=== PATIENT | female | born 1995 | race Caucasian/White ===

== ENCOUNTER 2018-12-22 10:41 | Observation (INO) | payer OTHER ==
[2018-12-22 11:20] VITALS: BP 117/77; PULSE 84
[2018-12-22 11:35] LABS: Appearance CLEAR (CLEAR); Bacteria FEW /HPF (NEGATIVE); Bilirubin NEGATIVE (NEGATIVE); Blood NEGATIVE Ery/ul (0-5); Epithelial Cells RARE /HPF (FEW); Glucose NEGATIVE (NEGATIVE); Ketones NEGATIVE (NEGATIVE); Leukocyte Esterase SMALL (NEGATIVE); Mucus SLIGHT /HPF (NEGATIVE); Nitrite NEGATIVE (NEGATIVE); Protein,Urine Dip NEGATIVE (Negative); Specific Gravity 1.005 (1.005-1.025); Urobilinogen NEGATIVE mg/dL (0-1)
--- NOTE | 2018-12-22 12:15 | XRAY ---
Indication: Cervical length. Two-dimensional transvaginal limited OB ultrasound performed to evaluate cervical length. Cervix is closed measuring 4 cm in length.
== END 2018-12-22 12:35 | disposition home or self-care (01) ==
LOC: OB 10:41
PROVIDERS: ADMIT Family Medicine; ATTEND Family Medicine
DX: Z34.82 Encounter for supervision of other normal pregnancy, second trimester (principal)
CPT/HCPCS: 76817; 81001; 87086; G0378

== ENCOUNTER 2019-03-06 12:35 | Observation (INO) | payer OTHER ==
[2019-03-06 13:00] VITALS: BP 113/72; PULSE 100
[2019-03-06 13:17] LABS: Appearance CLEAR (CLEAR); Bacteria RARE /HPF (NEGATIVE); Bilirubin NEGATIVE (NEGATIVE); Blood NEGATIVE Ery/ul (0-5); Epithelial Cells RARE /HPF (FEW); Glucose NEGATIVE (NEGATIVE); Ketones NEGATIVE (NEGATIVE); Leukocyte Esterase SMALL (NEGATIVE); Nitrite NEGATIVE (NEGATIVE); Protein,Urine Dip NEGATIVE (Negative); RBC 0-2 /HPF (0-2); Specific Gravity 1.004 (1.005-1.025); Urobilinogen NEGATIVE mg/dL (0-1); WBC 0-2 /HPF (0-5)
[2019-03-06 13:48] LABS: Amphetamine,Urine NEGATIVE (NEGATIVE); Barbiturate,Urine NEGATIVE (NEGATIVE); Benzodiazepine,Urine NEGATIVE (NEGATIVE); Cocaine,Urine NEGATIVE (NEGATIVE); Methadone,Urine NEGATIVE (NEGATIVE); Opiate,Urine NEGATIVE (NEGATIVE); PCP,Urine NEGATIVE (NEGATIVE); THC,Urine NEGATIVE (NEGATIVE)
== END 2019-03-06 14:50 | disposition home or self-care (01) ==
LOC: OB 12:35
PROVIDERS: ADMIT Family Medicine; ATTEND Family Medicine
DX: Z34.83 Encounter for supervision of other normal pregnancy, third trimester (principal)
CPT/HCPCS: 80307; 81001; 87086; G0378

== ENCOUNTER 2019-03-08 07:03 | Observation (INO) | payer OTHER ==
[2019-03-08 07:44] VITALS: BP 121/72; PULSE 90
== END 2019-03-08 10:00 | disposition home or self-care (01) ==
LOC: OB 07:03
PROVIDERS: ADMIT Family Medicine; ATTEND Family Medicine
DX: Z34.83 Encounter for supervision of other normal pregnancy, third trimester (principal)
CPT/HCPCS: G0378 ×2

== ENCOUNTER 2019-03-12 11:57 | Inpatient (IN) | payer OTHER ==
[2019-03-12] MEDS ORDERED: Lactated Ringers 1,000 ML IV ONE (14:09)
[2019-03-12] MEDS ORDERED: OB EPIDURAL NAROPIN/SUFENTANIL IN NACL EPIDURAL PRN (14:09)
[2019-03-12] MEDS ORDERED: Ephedrine Sulfate 50 MG/ML IV PRN (14:09)
[2019-03-12] MEDS ORDERED: XYLOCAINE 1% HCL 20 ML MDV IJ PRN (14:09)
[2019-03-12] MEDS ORDERED: PITOCIN 30 UNITS/ LR 500 ML 500 ML IV SCH (14:30)
[2019-03-12] MEDS ORDERED: STADOL 2 MG IV ONE (14:38)
[2019-03-12 14:40] LABS: BASOPHIL % 0.1 % (0.0-0.4); Basophil (Absolute #) 0.01 (0-0.4); Eosinophil % 1.5 % (0.00-5.0); Eosinophil (Absolute #) 0.22 (0-0.5); Granulocyte Absolute (ANC) 10.29 (1.4-6.9); Granulocytes % 72.2 % (36.0-66.0); Hematocrit 37.3 % (35-47); Hemoglobin 12.3 gm/dl (12.0-16.0); Lymphocyte (Absolute #) 2.53 (1.0-4.6); Lymphocytes % 17.8 % (24.0-44.0); Mean Cell Volume 86.7 fl (78-100); Mean Corpuscular Hemoglobin 28.6 pg (26-32); Mean Platelet Volume 10.1 fl (6-9.5); Monocytes % 8.4 % (0.0-12.0); Platelet Count 236 K/mm3 (150-450); White Blood Count 14.3 K/mm3 (4.0-10.5)
[2019-03-12] MEDS ORDERED: XYLOCAINE 2%/Epi 1:200000 20ML VIAL MPF ONE (14:57)
[2019-03-12 15:06] LABS: Amphetamine,Urine NEGATIVE (NEGATIVE); Barbiturate,Urine NEGATIVE (NEGATIVE); Benzodiazepine,Urine NEGATIVE (NEGATIVE); Cocaine,Urine NEGATIVE (NEGATIVE); Methadone,Urine NEGATIVE (NEGATIVE); Opiate,Urine NEGATIVE (NEGATIVE); PCP,Urine NEGATIVE (NEGATIVE); THC,Urine NEGATIVE (NEGATIVE)
[2019-03-12] MEDS: Lactated Ringers 1,000 ML IV SCH ×2 (15:22→20:39)
[2019-03-12] MEDS ORDERED: XYLOCAINE 2%/Epi 1:200000 20ML VIAL MPF IJ PRN (15:23)
[2019-03-12 16:16] LABS: ABO TYPING A; Antibody Screen NEGATIVE (NEGATIVE); RH TYPING POSITIVE
[2019-03-12] MEDS ORDERED: Mylicon 80MG PO PRN (21:24)
[2019-03-12] MEDS ORDERED: CORTISONE 1% CREAM TP PRN (21:24)
[2019-03-12] MEDS ORDERED: MOTRIN 400 MG PO PRN (21:24)
[2019-03-12] MEDS ORDERED: LANSINOH 40 GM TOP PRN (21:24)
[2019-03-12] MEDS ORDERED: Dermoplast Spray TP PRN (21:24)
[2019-03-12] MEDS ORDERED: TYLENOL EXTRA STRENGTH 500 MG PO PRN (21:24)
[2019-03-12] MEDS ORDERED: NORCO 5/325 MG PO PRN (21:24)
[2019-03-12] MEDS ORDERED: Anucort-HC SUPPOSITORY PR PRN (21:24)
[2019-03-12] MEDS ORDERED: Dulcolax 10 MG SUPP PR PRN (21:24)
[2019-03-12] MEDS ORDERED: CLARITIN 10 MG PO PRN (21:39)
[2019-03-13] MEDS: Colace 100 MG PO SCH ×4 (00:50→21:11)
[2019-03-13 06:10] LABS: BASOPHIL % 0.1 % (0.0-0.4); Basophil (Absolute #) 0.01 (0-0.4); Eosinophil % 0.4 % (0.00-5.0); Eosinophil (Absolute #) 0.08 (0-0.5); Granulocyte Absolute (ANC) 15.81 (1.4-6.9); Hematocrit 33.2 % (35-47); Hemoglobin 10.8 gm/dl (12.0-16.0); Lymphocyte (Absolute #) 1.92 (1.0-4.6); Lymphocytes % 9.9 % (24.0-44.0); Mean Cell Volume 86.9 fl (78-100); Mean Corpuscular Hgb Concent. 32.5 g/dl (32-36); Mean Platelet Volume 9.8 fl (6-9.5); Monocyte (Absolute #) 1.67 (0.0-1.3); Monocytes % 8.6 % (0.0-12.0); Platelet Count 208 K/mm3 (150-450); Red Blood Count 3.82 M/mm3 (4.1-5.4); Red Cell Distribution Width 14.2 % (11.5-14.0); White Blood Count 19.5 K/mm3 (4.0-10.5)
[2019-03-13 06:13] LABS: Mean Corpuscular Hemoglobin 28.2 pg (26-32)
[2019-03-13] MEDS: FERREX 150 PO SCH (13:56)
--- NOTE | 2019-03-14 08:11 | PCM.DS ---
Discharge Summary Date of Admission: 03/12/19 13:50 Admitting Physician: HUBERT MYERS Consults: Consults on Case 03/12/19 14:11 Notify Anesthesia Provider PRN 03/12/19 21:24 Notify Physician ROUTINE Primary Care Provider: HUBERT MYERS Allergies Allergies No Known Drug Allergies Allergy (Verified 03/06/19 12:44) Hospital Summary - Hospital Course Hospital Course: pt 23yo delivered at 38+ wks EGA, with no complications. doing well - Vitals & Intake/Output Vital Signs: Vital Signs Temperature 98.3 F 03/14/19 02:00 Pulse Rate 80 03/14/19 02:00 Respiratory Rate 18 03/14/19 02:00 Blood Pressure 98/54 03/14/19 02:00 O2 Sat by Pulse Oximetry 99 03/12/19 18:56 Intake & Output: Intake & Output 03/11/19 03/12/19 03/13/19 03/14/19 11:59 11:59 11:59 11:59 Intake Total 3383 1700 Balance 3383 1700 Weight 96.162 kg - Lab Result Diagrams: 03/13/19 05:50 Lab Results-Last 24 Hrs: Lab Results-Last 24 Hours 03/12/19 03/12/19 Range/Units 15:15 15:15 RPR w/Rflx to Titer Pending Hep Bs Antigen Non Reactive (Non Reactive) HIV Ag/Ab Interpret See Result Note: HIV 1&2 Antigen & Ab Non Reactive (Non Reactive) Rubella Immune Status Pending Rubella IgG Antibody Pending Micro Results-Entire Visit: Microbiology 03/12/19 19:06 Urine Culture - Final Catherized NO GROWTH Discharge Exam General Appearance: no apparent distress, alert Eye Exam: PERRL, EOMI, eyes nml inspection Respiratory Exam: normal breath sounds, lungs clear, No respiratory distress Cardiovascular Exam: regular rate/rhythm, normal heart sounds Gastrointestinal/Abdomen Exam: soft, No tenderness, No mass Extremity Exam: normal inspection, normal range of motion Skin Exam: normal color, warm, dry Final Diagnosis/Problem List - Final Discharge Diagnosis/Problem (1) Vaginal delivery Current Visit: Yes Status: Acute Code(s): O80 - ENCOUNTER FOR FULL-TERM UNCOMPLICATED DELIVERY - Discharge Disposition: Home, Self-Care Condition: Stable Prescriptions: New Ibuprofen 800 mg PO TID PRN #30 tablet Continue Vits W-Ca,Fe,FA(<1Mg) [] 1 tab PO DAILY Follow up with: HUBERT MYERS MD [Primary Care Provider] - 1 Week
[2019-03-14] MEDS: FERREX 150 PO SCH (09:44)
[2019-03-14] MEDS: Colace 100 MG PO SCH (09:44)
[2019-03-14 10:53] LABS: Immune Status: Immune
[2019-03-14 13:13] LABS: RPR Screen Non Reactive (Non Reactive)
[2019-03-14 19:11] VITALS: BP 117/77; PULSE 72; O2SAT 98
== END 2019-03-14 19:48 | disposition home or self-care (01) | DRG 807 ==
LOC: OB 11:57 → OBSVTOIN 13:50 → OB 13:50
PROVIDERS: ADMIT Family Medicine; ATTEND Family Medicine
PROC: 10E0XZZ Delivery of Products of Conception, External Approach (ICD-10-PCS; principal; 2019-03-12)
DX: O80 Encounter for full-term uncomplicated delivery (principal); Z37.0 Single live birth; Z3A.38 38 weeks gestation of pregnancy
CPT/HCPCS: 36415; 80307; 83986; 85025; 86592; 86593; 86701; 86702; 86762; 86850; 86900; 86901; 87086; 87340; 87389; G0378; J2590; J2795; 0064U; 0065U; A9270-GY